=== PATIENT | male | born 2000 | race Caucasian/White ===

== ENCOUNTER 2022-01-28 19:59 | Emergency (ER) | payer BC ==
[~2022-01-28] VITALS: Ht 185.4 cm; Wt 72.6 kg
--- NOTE | 2022-01-28 19:59 | NUR ---
Dr. Rowland examining patient.
--- NOTE | 2022-01-28 19:59 | NUR ---
PT TAKEN TO BED 10
[2022-01-28 20:06] VITALS: BP 94/52
[2022-01-28] MEDS ORDERED: NACL 0.9% 1,000 ML IV ONE (20:10)
[2022-01-28] MEDS ORDERED: diphenhydrAMINE 50 MG/ML VIAL ONE (20:14)
[2022-01-28] MEDS ORDERED: ONDANSETRON 4 MG/2 ML VIAL ONE (20:14)
[2022-01-28] MEDS ORDERED: KETOROLAC 30 MG/ML VIAL ONE (20:14)
[2022-01-28] MEDS ORDERED: diphenhydrAMINE 50 MG/ML VIAL IVP ONE (20:15)
[2022-01-28] MEDS ORDERED: KETOROLAC 30 MG/ML VIAL IVP ONE (20:15)
[2022-01-28] MEDS ORDERED: ONDANSETRON 4 MG/2 ML VIAL IVP ONE (20:15)
[2022-01-28 20:42] VITALS: BP 99/52
[2022-01-28] MEDS ORDERED: methylPREDNISolone SS 125 MG/2 ML VIAL IVP ONE (21:25)
[2022-01-28] MEDS ORDERED: EPIN1KIT31 IM (21:32)
[2022-01-28] MEDS ORDERED: DIPH25TA53 PO (21:32)
[2022-01-28] MEDS ORDERED: PRED20TA5 PO (21:32)
--- NOTE | 2022-01-28 21:42 | NUR ---
d/c with VSS. d/c education given. opportunity to ask questions given and answered. rx of prednisone, epipen, and benadryl given. IV site removed, bleeding controlled with sterile gauze and reinforced with tape.
== END 2022-01-28 21:42 | disposition home or self-care (01) ==
LOC: MED 19:59
DX: T78.1XXA Other adverse food reactions, not elsewhere classified, initial encounter (principal); R10.13 Epigastric pain; Z91.010 Allergy to peanuts; X58.XXXA Exposure to other specified factors, initial encounter
CPT/HCPCS: 96361; 96374; 96375; 99284; J1200; J1885; J2405; J2930